=== PATIENT | male | born 1965 | race Two or more races ===

== ENCOUNTER 2018-04-30 14:37 | Emergency (ER) | payer MEDICAID ==
[~2018-04-30] VITALS: Ht 170.2 cm; Wt 93.0 kg
[2018-04-30 14:55] VITALS: BP 114/67
== END 2018-04-30 15:40 | disposition home or self-care (01) ==
LOC: ER 14:42
DX: K64.8 Other hemorrhoids (principal)
CPT/HCPCS: A4606; Z7610